=== PATIENT | male | born 1950 | race Caucasian/White ===

== ENCOUNTER 2018-01-15 07:46 | Day surgery (SDC) | payer MEDICARE, BC ==
[~2018-01-15] VITALS: Ht 177.8 cm; Wt 117.0 kg
[~2018-01-15 07:46] MED LIST: HYDR-86; METF500C PO; OMEPRAZOLE MAGN20 MG PO; PROAIR RESPICL90 MCG INH; Prinivil10 MG PO; ROSU10TA PO; SERT100 PO
== END 2018-01-15 09:54 | disposition home or self-care (01) ==
LOC: ORSCSDS 07:46
PROVIDERS: Internal Medicine Gastroenterology
PROC: 0DJD8ZZ Inspection of Lower Intestinal Tract, Via Natural or Artificial Opening Endoscopic (ICD-10-PCS; principal; 2018-01-15 09:00)
DX: Z12.11 Encounter for screening for malignant neoplasm of colon (principal); K57.30 Diverticulosis of large intestine without perforation or abscess without bleeding; Z86.010 Personal history of colon polyps; Z83.71 Family history of colonic polyps; F32.9 Major depressive disorder, single episode, unspecified; E11.9 Type 2 diabetes mellitus without complications; Z87.891 Personal history of nicotine dependence; E66.9 Obesity, unspecified; Z68.38 Body mass index [BMI] 38.0-38.9, adult; K21.9 Gastro-esophageal reflux disease without esophagitis; Z79.84 Long term (current) use of oral hypoglycemic drugs; Z79.899 Other long term (current) drug therapy
CPT/HCPCS: 82947; J0330; J1980; J7120

== ENCOUNTER → 2019-04-25 | Outpatient (CLI) | payer MEDICARE, BC ==
[~2019-04-25] MED LIST changes: +Norco 5-325 Ta1 EACH PO; +OPTLUBOPOB RIGHTEYE; +Prednisone50 MG PO; +VALACYCLOVIR1000 MG PO
== END | disposition home or self-care (01) ==
LOC: LAB EV 14:46 → LAB SHORT 14:46
DX: H60.91 Unspecified otitis externa, right ear (principal)
CPT/HCPCS: 87070; 87205

== ENCOUNTER 2019-04-29 15:44 | Emergency (ER) | payer MEDICARE, BC ==
[~2019-04-29] VITALS: Ht 177.8 cm; Wt 117.9 kg
[~2019-04-29 15:44] MED LIST changes: -Norco 5-325 Ta1 EACH PO; -OPTLUBOPOB RIGHTEYE; -Prednisone50 MG PO; -VALACYCLOVIR1000 MG PO
[2019-04-29 16:38] LABS: BASOPHILS ABSOLUTE AUTO 0.02 K/mm3 (0.00-0.23); BASOPHILS PERCENT AUTO 0 % (0-2); EOSINOPHILS PERCENT AUTO 0 % (0-6); Hematocrit 44.8 % (37.0-53.0); Hemoglobin 14.9 g/dL (13.5-17.5); IMMATURE GRAN ABSOLUTE AUTO 0.03 K/mm3 (0.00-0.10); IMMATURE GRAN PERCENT AUTO 0 % (0-1); LYMPHOCYTES ABSOLUTE AUTO 1.08 K/mm3 (0.84-5.20); LYMPHOCYTES PERCENT AUTO 16 % (21-46); MONOCYTES ABSOLUTE AUTO 0.62 K/mm3 (0.16-1.47); MONOCYTES PERCENT AUTO 9 % (4-13); Mean Corpuscular HGB 30.8 pg (26.0-34.0); Mean Corpuscular HGB Conc 33.3 g/dL (31.5-36.5); Mean Corpuscular Volume 93 fL (80-100); Mean Platelet Volume 9.4 fL (9.1-12.4); NEUTROPHILS ABSOLUTE AUTO 5.19 K/mm3 (1.96-9.15); NEUTROPHILS PERCENT AUTO 75 % (41-73); Platelet Count 252 K/mm3 (150-400); RDW Coefficient Variation 13.1 % (11.7-14.2); RDW Standard Deviation 44.6 fL (35.1-46.3); Red Blood Cell Count 4.84 M/mm3 (4.30-5.90); White Blood Cell Count 6.94 K/mm3 (4.00-11.30)
[2019-04-29 17:10] LABS: Alanine Aminotransfer (ALT/SGP 48 U/L (12-78); Albumin, Blood 4.1 g/dL (3.4-5.0); Albumin/Globulin Ratio 1.1 (0.8-1.8); Alk Phos 88 U/L (50-136); Anion Gap 9 mmol/L (6-16); Aspartate Aminotrans (AST/SGOT 29 U/L (12-37); Bilirubin, Total 0.8 mg/dL (0.1-1.0); Blood Urea Nitrogen 16 mg/dL (8-24); Bun/Creatinine Ratio 17.8 (12.0-20.0); CO2, Blood 23 mmol/L (21-32); Chloride, Blood 103 mmol/L (98-108); Globulin, Blood 3.8 g/dL (2.2-4.0); Glomerular Filtration Rate >60 (60-); Glucose, Blood 122 mg/dL (70-99); Potassium, Blood 4.2 mmol/L (3.5-5.5); Sodium, Blood 135 mmol/L (136-145); Total Protein, Blood 7.9 g/dL (6.4-8.2)
[2019-04-29 19:54] LABS: Source, Urine Clean Catch
[2019-04-29 19:57] LABS: Bilirubin, Urine Neg (Neg); Blood, Urine 2+ (Neg); Glucose Qualitative, Urine Neg (Neg); Ketones, Urine 4+ (Neg); Leukocyte Esterase, Urine Neg (Neg); Nitrite, Urine Neg (Neg); Protein, Urine 2+ (Neg); Urobilinogen, Urine NORM (Normal)
[2019-04-29 20:06] LABS: Appearance, Urine Clear (Clear); Color, Urine Yellow (P-Yellow)
[2019-04-29 20:07] LABS: Amorphous Light (0-Heavy); Bacteria Rare /hpf; Mucus Light (0-Heavy); Squamous Epithelial Cells Rare /hpf (Few); White Blood Cells, Urine Not Seen /hpf (0-5)
[2019-04-29 22:01] LABS: Adenovirus Not Detected (NOT DETECT); Coronavirus 229E Not Detected (NOT DETECT); Coronavirus HKU1 Not Detected (NOT DETECT)
[2019-04-29 22:02] LABS: Bordetella pertussis Not Detected (NOT DETECT); Chlamydophila pneumoniae Not Detected (NOT DETECT); Coronavirus NL63 Not Detected (NOT DETECT); Coronavirus OC43 Not Detected (NOT DETECT); Human Metapneumovirus Not Detected (NOT DETECT); Human Rhinovirus/Enterovirus Not Detected (NOT DETECT); Influenza A Not Detected (NOT DETECT); Influenza A/2009-H1 Not Detected (NOT DETECT); Influenza A/H1 Not Detected (NOT DETECT); Influenza A/H3 Not Detected (NOT DETECT); Influenza B Not Detected (NOT DETECT); Mycoplasma pneumoniae Not Detected (NOT DETECT); Parainfluenza Virus 1 Not Detected (NOT DETECT); Parainfluenza Virus 2 Not Detected (NOT DETECT); Parainfluenza Virus 3 Not Detected (NOT DETECT); Parainfluenza Virus 4 Not Detected (NOT DETECT); Respiratory Syncytial Virus Not Detected (NOT DETECT)
[2019-04-29] MEDS ORDERED: Prednisone50 MG PO (23:25)
[2019-04-29] MEDS ORDERED: Norco 5-325 Ta1 EACH PO (23:25)
[2019-04-29] MEDS ORDERED: VALACYCLOVIR1000 MG PO (23:25)
[2019-04-29] MEDS ORDERED: OPTLUBOPOB RIGHTEYE (23:25)
== END 2019-04-29 23:53 | disposition home or self-care (01) ==
LOC: ER 15:44
PROVIDERS: Emergency Medicine; Physician Assistant
DX: S01.311A Laceration without foreign body of right ear, initial encounter (principal); B02.21 Postherpetic geniculate ganglionitis; R29.810 Facial weakness; I10 Essential (primary) hypertension; E11.9 Type 2 diabetes mellitus without complications; E78.00 Pure hypercholesterolemia, unspecified; Z87.891 Personal history of nicotine dependence; Z88.1 Allergy status to other antibiotic agents; Z88.5 Allergy status to narcotic agent; Z79.899 Other long term (current) drug therapy; Z79.84 Long term (current) use of oral hypoglycemic drugs
CPT/HCPCS: 0099U; 36415; 70450; 70491; 80053; 81001; 85025; 93005; 93010; 96361; 96374-59; 96375-59; 99284-25; J1100; J2405; J7030; Q9967

== ENCOUNTER → 2023-08-24 | Outpatient (CLI) | payer MEDICARE, BC ==
[~2023-08-24] MED LIST changes: +Norco 5-325 Ta1 EACH PO; +OPTLUBOPOB RIGHTEYE; +Prednisone50 MG PO; +VALACYCLOVIR1000 MG PO
[2023-08-25 10:21] LABS: Stool Occult Bld Immuno 1 Negative (NEGATIVE)
== END ==
LOC: LAB 09:30 → LAB SHORT 09:30
PROVIDERS: Internal Medicine Gastroenterology
DX: Z86.010 Personal history of colon polyps (principal)
CPT/HCPCS: G0328

== ENCOUNTER → 2023-08-29 | Outpatient (CLI) | payer MEDICARE, BC ==
[2023-08-30 08:22] LABS: Stool Occult Bld Immuno 1 Negative (NEGATIVE)
== END | disposition home or self-care (01) ==
LOC: LAB 11:00 → LAB SHORT 11:00
PROVIDERS: Internal Medicine Gastroenterology
DX: Z09 Encounter for follow-up examination after completed treatment for conditions other than malignant neoplasm (principal); Z86.010 Personal history of colon polyps
CPT/HCPCS: 82274